=== PATIENT | male | born 1945 | race Caucasian/White ===

== ENCOUNTER 2018-11-14 08:26 | Outpatient (CLI) | payer MEDICARE, BC ==
[2018-11-14 10:00] VITALS: BP 152/80
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
== END 2018-11-14 08:27 | disposition home or self-care (01) ==
LOC: SC 08:26
PROVIDERS: ATTEND Nurse Practitioner Family
DX: G47.10 Hypersomnia, unspecified (principal); G47.8 Other sleep disorders; G47.00 Insomnia, unspecified; R06.83 Snoring
CPT/HCPCS: 99203; G0463; 99212

== ENCOUNTER 2018-11-26 19:22 | Outpatient (CLI) | payer MEDICARE, BC | END 2018-11-26 19:23 | disposition home or self-care (01) | LOC: SC 19:22 | PROVIDERS: ATTEND Internal Medicine Pulmonary Disease | DX: G47.33 Obstructive sleep apnea (adult) (pediatric) (principal) | CPT/HCPCS: 95810 ==

== ENCOUNTER 2018-12-14 08:30 | Outpatient (CLI) | payer MEDICARE, BC ==
[2018-12-14 09:29] VITALS: BP 140/90
--- NOTE | 2018-12-14 09:29 | SLEEP CARE CONSULTATION ---
Information from patient questionnaire entered by Leia Braswell. I have reviewed and concur with the information entered by Leia Braswell. This document represents the service I personally performed and the decisions made by me, Марина Stearns, RN, MSN, MANAGER PROJECT. History of Present Illness Initial [place] Sleepiness Scale score: 13 Current [place] Sleepiness Scale score: 9 Additional HPI information: ADARSH KEE returns for follow up of the recently performed polysomnography and informed of findings. I explained the pathophysiology behind obstructive sleep apnea. We then spent quite a bit of time discussing different treatment options. For mild obstruct jorge sleep apnea, surgery and oral appliance are alternatives to nasal CPAP therapy but in moderate or severe cases, nasal CPAP is the most effective and reliable treatment. Because apnea is primarily in supine position, then positional management therapy could be effective. Methods discussed such as positioning with pillows, using a T-shirt with tennis balls in the back, and shown commercial products that have a pillow format on back to prevent supine sleep. I reviewed the impact of weight changes on sleep apnea and strongly recommended losing weight. After some discussion, the patient opted to go with the oral appliance. AAS non PAP treatment patient education reviewed and given to patient with list of accredited dentists and one non-accredited dentist in general area to call for a consult. A prescription was given to start process. Patient advised to check insurance to see if oral appliance is covered. Some dentists do not take Medicare. I will have patient follow up in 3 months to check effectiveness of treatment. If reduction of symptoms and comfortable with treatment, a polysomnography will be ordered using the oral appliance to check efficacy of treatment. Non Pap treatment pamphlets ]reviewed and given to patient. Patient counseled not drink alcohol less than 4 hours before bedtime as it can increase snoring and apnea. Patient was cautioned about risks of drowsy driving until sleepiness symptoms resolve. Patient denies drowsy driving. Sleep Study - Polysomnography Polysomnography findings: The quality of the study is good. The patient had slightly reduced sleep efficiency due to frequent awakenings after the sleep onset. Despite moderate sleep fragmentation,, the sleep architecture was relatively normal.. Respiratory monitoring showed mild obstructive sleep apnea-hypopnea (AHI = 14.8) associated with frequent arousals, oxyhemoglobin desaturation and mild hypoxia (mark oxygen saturation of 88%). The respiratory events occurred almost exclusively during supine sleep (supine AHI = 27.6; non- supine = 0.92). Snore was loud in intensity. There was no significant periodic leg movement of sleep. Cardiac rhythm was normal sinus rhythm without significant arrhythmia. No abnormal behavior (parasomnia) observed during the night. Allergies and Home Medications Known drug allergies: No Home medication list reviewed: Yes (no changes) Review of Systems Review of systems same as previous: Yes Physical Exam Blood Pressure: 140/90 Cuff size: long Heart Rate: 70 O2 Saturation: 97 Height: 6 ft 1.3 in Weight: 222 lb (with boots) Body Mass Index: 29.0 BMI Classification: Overweight Impression and Plan 1. Obstructive Sleep Apnea-Hypopnea Syndrome, mild with lowest oxygen saturation of 88%. Obviously this is the cause of the patients symptoms of unrefreshed sleep, and intermittent excessive daytime sleepiness. Control of his apnea could benefit his elevated blood pressure. As mentioned above, the patient will be started an on an oral appliance. A list of accredited dentists given. A prescription also given. Until he obtains his oral appliance, he is advised to try to avoid supine sleep by using pillow positioning as discussed. I also advised him to discuss his treatment choice with his PCP and he agreed with plan. * Oral appliance * Attempt to lose weight. * Avoid alcohol consumption near bedtime. * Avoid supine sleep until using oral appliance * The patient is again cautioned about driving until sleepiness completely resolves. * Return 3 month after oral appliance obtained. I will assess response to therapy and compliance at that time. I spent 100% of this 35 minute visit face to face with the patient with greater than 50% of this was spent time counseling the patient and coordination of care.
== END 2018-12-14 08:31 | disposition home or self-care (01) ==
LOC: SC 08:30
PROVIDERS: ATTEND Nurse Practitioner Family
DX: G47.33 Obstructive sleep apnea (adult) (pediatric) (principal)
CPT/HCPCS: 99214; G0463; 99212